=== PATIENT | female | born 1955 | race Caucasian/White ===

== ENCOUNTER 2023-04-13 08:15 | Outpatient (RCR) | payer BC, SELFPAY | END 2023-04-13 09:13 | disposition home or self-care (01) | PROVIDERS: Visit Provider Orthopaedic Surgery | DX: Z98.890 Other specified postprocedural states (principal); R53.1 Weakness; Z74.09 Other reduced mobility; Z51.89 Encounter for other specified aftercare | CPT/HCPCS: 97035; 97110; 97140; 97165; X5282 ==